=== PATIENT | female | born 1985 | race American Indian/Alaskan Native ===

== ENCOUNTER 2017-12-17 17:01 | Emergency (ER) | payer MEDICAID ==
[2017-12-17] MEDS ORDERED: Albuterol-Ipratrop 3 mg / 0.5 (3 ml) UD INH STA ×2 (17:37→18:15)
[2017-12-17] MEDS ORDERED: Promethazine/Cod 6.25mg-10mg/5ml Syr UD PO STA (17:38)
[2017-12-17] MEDS ORDERED: Albuterol-Ipratrop 3 mg / 0.5 (3 ml) UD ONE ×2 (17:47→18:33)
[2017-12-17] MEDS ORDERED: Promethazine/Cod 6.25mg-10mg/5ml Syr UD ONE (18:12)
--- NOTE | 2017-12-17 18:31 | C.PDOC ---
History Of Present Illness 32yo female, with history of asthma, presents to ER for evaluation of a dry non- productive cough for 3 days. Pt describes it as a scratch in her throat, not SOB > She reports she has been using her inhaler with transient relief. Of note, patient's son is in the ER with similar complaints. H/o similar episodes in the past resolved with nebulizers , no h/o admissions. She denies any fever, chills , chest pain, abdominal pain, headache, vomiting and rash. Time Seen by Provider: 12/17/17 17:25 Chief Complaint (Nursing): Cough, Cold, Congestion History Per: Patient History/Exam Limitations: no limitations Onset/Duration Of Symptoms: Days (4) Current Symptoms Are (Timing): Still Present Sick Contacts (Context): Family Member(s) Past Medical History Reviewed: Historical Data, Nursing Documentation, Vital Signs Vital Signs: Last Vital Signs Temp 98.5 F 12/17/17 18:56 Pulse 93 H 12/17/17 18:56 Resp 22 12/17/17 18:56 BP 146/83 12/17/17 18:56 Pulse Ox 96 12/17/17 21:39 - Medical History PMH: Asthma, Bronchitis Surgical History: No Surg Hx Family History: States: No Known Family Hx - Social History Hx Alcohol Use: No Hx Substance Use: No - Immunization History Hx Tetanus Toxoid Vaccination: Yes Hx Influenza Vaccination: Yes Hx Pneumococcal Vaccination: No Review Of Systems Except As Marked, All Systems Reviewed And Found Negative. Constitutional: Negative for: Fever, Chills Cardiovascular: Negative for: Chest Pain Respiratory: Positive for: Cough. Negative for: Shortness of Breath, Sputum Gastrointestinal: Negative for: Vomiting Physical Exam - Physical Exam Appears: Non-toxic Skin: Warm, Dry Head: Atraumatic, Normacephalic Eye(s): bilateral: Normal Inspection, EOMI Nose: Normal Oral Mucosa: Moist Neck: Normal ROM, Supple Chest: Symmetrical Cardiovascular: Rhythm Regular Respiratory: Decreased Breath Sounds Gastrointestinal/Abdominal: Soft, No Tenderness Extremity: Normal ROM Neurological/Psych: Oriented x3 ED Course And Treatment O2 Sat by Pulse Oximetry: 96 (RA) Pulse Ox Interpretation: Normal - Radiology CXR: Interpreted by Me, Viewed By Me CXR Interpretation: Yes: Infiltrates (right lower lobe) Progress Note: Patient given Duoneb 3ml INH x 2, prednisone 60mg PO, phenergan syrup, and zithromax PO. On re-evaluation, patient is resting comfortably with no wheezing, chest pain, or retractions. Oxygen saturation WNL and breath sounds have improved. CXR reviewed and shows right lower lobe pneumonia. CXR findings discussed with patient, and informed she will be discharged home on a course of Zithromax and Prednisone. Patient instructed to follow up with her PMD in 2-3 days. Disposition - Disposition Disposition: HOME/ ROUTINE Disposition Time: 18:30 Condition: STABLE Additional Instructions: Follow up with your primary medical doctor or clinic in 2-5 days for further evaluation. Take medications as prescribed. Return to the emergency department at any time if symptoms persist or worsen. 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 - Scribe Statement The provider has reviewed the documentation as recorded by the Scribe (María Arenas) Provider Attestation: All medical record entries made by the Scribe were at my direction and personally dictated by me. I have reviewed the chart and agree that the record accurately reflects my personal performance of the history, physical exam, medical decision making, and the department course for this patient. I have also personally directed, reviewed, and agree with the discharge instructions and disposition.
[2017-12-17 18:57] VITALS: BP 146/83; PULSE 93; RESP 22; TEMP 98.5
--- NOTE | 2017-12-17 19:35 | RAD ---
HISTORY: sob COMPARISON: No prior. TECHNIQUE: Chest PA and lateral FINDINGS: LUNGS: Suspicious for right lower lobe infiltrate. PLEURA: No significant pleural effusion identified. No pneumothorax apparent. CARDIOVASCULAR: Normal. OSSEOUS STRUCTURES: No significant abnormalities. VISUALIZED UPPER ABDOMEN: Normal. OTHER FINDINGS: None. IMPRESSION: Suspicious for right lower lobe infiltrate. Otherwise no evidence of acute pathology.
[2017-12-17 21:33] VITALS: O2SAT 96
== END 2017-12-17 19:00 | disposition home or self-care (01) ==
LOC: C.ER 17:01
DX: J18.9 Pneumonia, unspecified organism (principal)